=== PATIENT | female | born 1965 | race African-American/Black ===

== ENCOUNTER 2018-08-11 05:27 | Day surgery (SDC) | payer OTHER ==
[~2018-08-11] VITALS: Ht 162.6 cm; Wt 107.0 kg
--- NOTE | ~2018-08-11 | PATH ---
[facility] [address] [place] [address] PATHOLOGY RPT PROCEDURE Name: ASPEN SANDOVAL Room #: [facility] M.R.#: [id number] Admission: 08/11/18 Date of : 67 Discharge: 08/11/18 Report #: [id number] Path Case #: [id number] [facility] Accession Number: [id number] . 01 Material submitted: . LEFT POSTERIOR NECK LYMPH NODE BX . 01 Clinician provided ICD-10: R59.0 . 01 Clinical history: . Enlarged lymph node . 02 Diagnosis: Lymph node (1) "left posterior neck lymph node biopsy": - Benign reactive lymph node with sinus histiocytosis. - No granulomas to suggest sarcoidosis. - See comment. QTP08/12/2018 . 02 Comment: This case was also reviewed by Dr. Cara Varma. . Flow studies reveal no immunopholiferative evidence of a clonal lymphoproliferative disorder ([employer] case [id number]) (SHA:pit 08/12/2018) . 02 Electronically signed: . Jorden Burger MD, Pathologist NPI- [id number] . 01 Gross description: . The specimen is received in formalin, labeled "Aspen Sandoval, left posterior neck lymph node BX" and consists of a lymph node measuring 1.3 x 1.1 x 0.5 cm. It is serially sectioned and entirely submitted in A1. (SDY; 08/11/2018) SYU/SYU . 02 Pathologist provided ICD-10: R59.0 . 02 CPT . 312597 Specimen Comment: A courtesy copy of this report has been sent to Specimen Comment: [phone], . Specimen Comment: Report sent to / DR MÁRQUEZ Performed at: [address] [address] PATHOLOGY RPT PROCEDURE Name: ASPEN SANDOVAL Room #: [facility] [place] Joanna#: [id number] Admission: 08/11/18 Date of : 67 Discharge: 08/11/18 Report #: [id number] Path Case #: [id number] [place] [id number] [address] [id number] MD Wilfredo Cooley MD Phone: [phone] Performed at: [address] [id number] MD Dottie Morton MD Phone: [phone]
[~2018-08-11 05:27] MED LIST: ACYCLOVIR 200200 MG PO; HYDROXYCHLOROQ200 M1 PO; KLOR-CON M2020 MEQ PO; MAXZIDE-25 MG1 EACH PO; PROTONIX40 M1 PO; VITAMIN D50000 UNIT PO
[2018-08-11 06:59] LABS: HEMATOCRIT 34.5 % (37.0-47.0); HEMOGLOBIN 11.5 gm/dL (12.0-15.0)
[2018-08-11 07:12] LABS: CALCIUM 9.1 mg/dL (8.5-10.1); CREATININE 0.8 mg/dL (0.6-1.0); POTASSIUM 3.9 mmol/L (3.5-5.1)
[2018-08-11 08:00] VITALS: BP 133/72
[2018-08-11] MEDS ORDERED: ULTRAM 50MG TAB50 MG PO (08:53)
== END 2018-08-11 09:32 | disposition home or self-care (01) ==
LOC: OR 05:27 → TBA 05:27 → OR 07:29
PROVIDERS: Surgery
DX: D76.3 Other histiocytosis syndromes (principal); K21.9 Gastro-esophageal reflux disease without esophagitis; F32.9 Major depressive disorder, single episode, unspecified; F41.9 Anxiety disorder, unspecified; Z98.890 Other specified postprocedural states; Z91.040 Latex allergy status; Z98.51 Tubal ligation status; Z88.2 Allergy status to sulfonamides; Z79.899 Other long term (current) drug therapy
CPT/HCPCS: 50010; 50101; 50386; 50403; 56526; 56527

== ENCOUNTER → 2020-02-13 | Outpatient (CLI) | payer OTHER ==
[~2020-02-13] MED LIST changes: +ULTRAM 50MG TAB50 MG PO
== END ==
LOC: SJCVCIMAG 08:25
DX: I08.8 Other rheumatic multiple valve diseases (principal); D86.9 Sarcoidosis, unspecified; K21.9 Gastro-esophageal reflux disease without esophagitis; E78.5 Hyperlipidemia, unspecified; Z88.2 Allergy status to sulfonamides; Z79.899 Other long term (current) drug therapy